=== PATIENT | female | born 2000 | race Two or more races ===

== ENCOUNTER 2021-05-23 12:33 | Emergency (ER) | payer OTHER ==
[~2021-05-23] VITALS: Ht 157.5 cm; Wt 65.3 kg
[2021-05-23] MEDS ORDERED: PRENA1 TRUE CO1 EACH (12:48)
== END 2021-05-23 15:19 | disposition home or self-care (01) ==
LOC: ER 12:33
DX: O26.892 Other specified pregnancy related conditions, second trimester (principal); Z3A.19 19 weeks gestation of pregnancy; N93.9 Abnormal uterine and vaginal bleeding, unspecified

== ENCOUNTER 2023-10-10 19:14 | Inpatient (IN) | payer OTHER ==
[~2023-10-10] VITALS: Ht 152.4 cm; Wt 83.9 kg
[~2023-10-10 19:14] MED LIST: PRENA1 TRUE CO1 EACH
[2023-10-10 19:36] VITALS: BP 140/86
[2023-10-10] MEDS ORDERED: AMPICILLIN SODIUM 2,000 MG VIAL ONE (20:07)
[2023-10-10] MEDS ORDERED: AMPICILLIN SODIUM 2,000 MG VIAL IV SCH (21:26)
[2023-10-10] MEDS ORDERED: RINGERS SOLUTION,LACTATED 1,000 ML IV SCH (21:30)
[2023-10-10 21:35] LABS: HEMOGLOBIN 10.1 g/dL (12.0-15.00); MEAN CELL VOLUME 80.6 fL (80.00-100.00); MEAN CORPUSCULAR HGB CONC 33.5 g/dl (32.0-36.0); PLATELET COUNT 257 K/uL (150-450); RED BLOOD COUNT 3.72 M/uL (4.00-6.00); URINE APPEARANCE Clear; URINE BILIRRUBIN Negative (NEGATIVE); URINE BLOOD Negative; URINE COLOR Yellow; URINE GLUCOSE Negative (NEGATIVE); URINE KETONE Negative (NEGATIVE); URINE LEUKOCYTE Small; URINE NITRATE Negative; URINE PROTEIN Trace (NEGATIVE); URINE UROBILINOGEN 0.2 E.U./dl
[2023-10-10 21:36] LABS: RED CELL DISTRIBUTION WIDTH 19.6 % (11.5-14.5)
[2023-10-10 21:37] LABS: URINE BACTERIA 987.7 uL (0.0-1933); URINE EPITHELIAL CELLS 30.1 uL (0.0-38.8); URINE RBC 4.5 uL (0.0-20.8); URINE WBC 58.7 uL (0.0-23.2)
[2023-10-10 21:53] LABS: INR 0.94; PARTIAL THROMBOPLASTIN TIME 25.6 SECONDS (22.0-34.0); PROTHROMBIN TIME 10.3 SECONDS (9.0-11.5)
[2023-10-10 22:00] LABS: ALBUMIN 2.8 gm/dL (3.4-5.0); BILIRUBIN TOTAL 0.24 mg/dL (0.3-1.2); CALCIUM 8.7 mg/dL (8.5-10.1); CREATININE SERUM 0.41 mg/dL (0.55-1.02); GFR 193.99; GLOBULINA 3.8 G/DL (2.4-3.5); POTASSIUM 4.37 mEq/L (3.5-5.1); TOTAL PROTEIN 6.6 gm/dL (6.4-8.2)
[2023-10-10 22:08] VITALS: BP 131/74
[2023-10-10] MEDS ORDERED: ACETAMINOPHEN 500 MG GEL..CAP PO PRN (22:15)
[2023-10-10 23:54] VITALS: BP 138/79
[2023-10-11] VITALS (9 sets, daily range): BP systolic 122–150; BP diastolic 66–100
[2023-10-11] MEDS ORDERED: OXYTOCIN 20 UNITS/500ML RL PIGGYBAG IV SCH (09:00)
[2023-10-11] MEDS ORDERED: OXYTOCIN 20 UNITS/1000ML RL PIGGYBAG IV ONE (09:33)
[2023-10-11] MEDS ORDERED: ERYTHROMYCIN BASE 1 GM TUBE OP ONE ×2 (09:33→13:30)
[2023-10-11] MEDS ORDERED: LIDOCAINE HCL 1% 10ML VIAL ONE (09:34)
[2023-10-11] MEDS ORDERED: CHLORHEXIDINE GLUCONATE 120 ML BOTTLE TOP ONE ×2 (09:34→13:30)
[2023-10-11] MEDS ORDERED: MEPERIDINE HCL/PF 25 MG/ML VIAL IV STA (11:23)
[2023-10-11] MEDS ORDERED: PROMETHAZINE HCL 25 MG/ML AMPUL IV STA (11:23)
[2023-10-11] MEDS ORDERED: OXYTOCIN 1,000 ML IV SCH ×2 (13:30→14:00)
[2023-10-11] MEDS ORDERED: ACETAMINOPHEN 500 MG GEL..CAP PO PRN (14:00)
[2023-10-11 16:46] LABS: HEMATOCRIT 33.9 % (36.0-45.00); HEMOGLOBIN 11.3 g/dL (12.0-15.00); MEAN CELL VOLUME 80.6 fL (80.00-100.00); MEAN CORPUSCULAR HGB CONC 33.4 g/dl (32.0-36.0); PLATELET COUNT 278 K/uL (150-450); RED CELL DISTRIBUTION WIDTH 19.3 % (11.5-14.5)
[2023-10-11] MEDS ORDERED: KETOROLAC TROMETHAMINE 30 MG VIAL IM NR (18:30)
[2023-10-12 01:06] VITALS: BP 126/73
[2023-10-12 08:00] VITALS: BP 145/91
[2023-10-12] MEDS ORDERED: PNV,CALCIUM 72/IRON/FOLIC ACID 1 TAB TABLET PO SCH (09:00)
[2023-10-12 11:00] VITALS: BP 117/74
[2023-10-12 16:36] VITALS: BP 140/80
[2023-10-13] VITALS: BP 140/86
[2023-10-13 08:00] VITALS: BP 125/80
[2023-10-13 12:00] VITALS: BP 137/86
== END 2023-10-13 16:32 | disposition home or self-care (01) | DRG 807 ==
LOC: LDR 19:14 → OB/GYN 10-11 13:55
PROVIDERS: ADMIT Obstetrics & Gynecology; ATTEND Obstetrics & Gynecology
PROC: 4A1HXCZ Monitoring of Products of Conception, Cardiac Rate, External Approach (ICD-10-PCS; 2023-10-10)
PROC: 10E0XZZ Delivery of Products of Conception, External Approach (ICD-10-PCS; principal; 2023-10-11)
DX: O13.4 Gestational [pregnancy-induced] hypertension without significant proteinuria, complicating childbirth (principal); Z37.0 Single live birth; Z3A.38 38 weeks gestation of pregnancy; Z20.822 Contact with and (suspected) exposure to COVID-19